=== PATIENT | female | born 1995 | race Caucasian/White ===

== ENCOUNTER 2018-02-14 21:53 | Emergency (ER) | payer OTHER ==
[2018-02-14] MEDS ORDERED: SODIUM CHLORIDE 0.9% 1,000 ML IV ONE (22:47)
[2018-02-14] MEDS ORDERED: ACETAMINOPHEN TAB 325 MG TAB PO STA (22:47)
[2018-02-14 22:55] LABS: Basophils % (A) 0 %; Eosinophils # (A) 0.1 k/uL (0-0.7); Eosinophils % (A) 0 %; HGB 14.1 gm/dL (11.4-16.0); Lymphocytes # (A) 1.8 k/uL (1.0-4.8); Lymphocytes % (A) 13 %; MCH 29.7 pg (25.0-35.0); MCHC 34.3 g/dL (31.0-37.0); MCV 86.7 fL (80.0-100.0); Monocytes # (A) 1.2 k/uL (0-1.0); Monocytes % (A) 9 %; Neutrophils # (A) 10.9 k/uL (1.3-7.7); Neutrophils % (A) 77 %; Platelet Count 332 k/uL (150-450); RBC 4.74 m/uL (3.80-5.40); RDW 11.5 % (11.5-15.5); WBC 14.3 k/uL (4.0-11.0)
[2018-02-14 23:09] LABS: ALT 27 U/L (9-52); AST 23 U/L (14-36); Albumin 4.6 g/dL (3.5-5.0); Alkaline Phosphatase 80 U/L (38-126); Anion Gap 16 mmol/L; Blood Urea Nitrogen 9 mg/dL (7-17); Calcium 9.9 mg/dL (8.4-10.2); Carbon Dioxide 30 mmol/L (22-30); Chloride 96 mmol/L (98-107); Glucose 89 mg/dL (74-99); Potassium 5.3 mmol/L (3.5-5.1); Sodium 142 mmol/L (137-145); Total Bilirubin 0.8 mg/dL (0.2-1.3); Total Protein 8.4 g/dL (6.3-8.2)
[2018-02-14 23:12] LABS: Appearance,Urine Clear (Clear); Bacteria,Urine Rare /hpf; Bilirubin,Urine Negative (Negative); Blood,Urine Negative (Negative); Color,Urine Yellow; Glucose,Urine (UA) Negative (Negative); Ketones,Urine Negative (Negative); Leukocyte Esterase,Urine Moderate (Negative); Mucus,Urine Rare /hpf; Nitrite,Urine Negative (Negative); PH, Urine 7.5 (5.0-8.0); Protein,Urine Negative (Negative); RBC,Urine 1 /hpf (0-5); Specific Gravity,Urine 1.006 (1.001-1.035); Squamous Epithelial Cell,Urine 2 /hpf (0-4); Urobilinogen,Urine <2.0 mg/dL (<2.0); WBC,Urine 26 /hpf (0-5)
[2018-02-14] MEDS ORDERED: RX INFO: IV CONTRAST WAS GIVEN 1 EACH MISC MISCELLANE PRN (23:30)
[2018-02-14 23:40] VITALS: RESP 18
--- NOTE | 2018-02-14 23:46 | ED ---
General Adult HPI - General Chief complaint: Abdominal Pain Stated complaint: Constipation Source: patient Mode of arrival: ambulatory Limitations: no limitations - History of Present Illness Initial comments: Tami is a previously healthy 22-year-old female who presents to the emergency department today for evaluation of right-sided abdominal pain and constipation. Patient reports that her last bowel movement was on Saturday. She reports that since that time she's been experiencing right-sided abdominal pain and pressure. She has tried to treat her constipation with [id number] medications including laxatives, stool softeners, enema and suppositories. Despite this aggressive treatment she has not had a bowel movement in 5 days. Though she was noted to be febrile on arrival the patient denies any subjective fevers, chills, nausea, vomiting. She does report mildly decreased appetite. She denies any change in bladder habits. She reports her last menses was 2 weeks ago and denies any possibility of . - Related Data Home Medications Medication Instructions Recorded Confirmed Bisacodyl [Dulcolax] 10 mg RECTAL ONCE PRN 02/14/18 02/14/18 Magnesium Citrate [Citrate of 296 ml PO ONCE PRN 02/14/18 02/14/18 Magnesia] Na Phos,M-B/Na Phos,Di-Ba [Fleet 133 ml RECTAL ONCE PRN 02/14/18 02/14/18 Adult] Previous Rx's Medication Instructions Recorded Levofloxacin [Levaquin] 750 mg PO DAILY 5 Days #5 tab 02/15/18 Allergies Allergy/AdvReac Type Severity Reaction Status Date / Time No Known Allergies Allergy Verified 02/14/18 22:16 Review of Systems ROS Statement: Those systems with pertinent positive or pertinent negative responses have been documented in the HPI. ROS Other: All systems not noted in ROS Statement are negative. Constitutional: Denies: fever, chills ENT: Denies: throat pain Respiratory: Denies: cough Cardiovascular: Denies: chest pain Endocrine: Denies: fatigue Gastrointestinal: Reports: abdominal pain, constipation. Denies: nausea, vomiting Genitourinary: Denies: dysuria, frequency, abnormal menses Musculoskeletal: Reports: back pain Skin: Denies: rash, lesions Neurological: Denies: headache, weakness Psychiatric: Denies: anxiety Past Medical History Past Medical History: No Reported History History of Any Multi-Drug Resistant Organisms: None Reported Past Surgical History: No Surgical Hx Reported Past Psychological History: No Psychological Hx Reported Smoking Status: Never smoker Past Alcohol Use History: None Reported Past Drug Use History: None Reported General Exam Limitations: no limitations General appearance: alert, in no apparent distress Head exam: Present: atraumatic, normocephalic Eye exam: Present: normal appearance, PERRL ENT exam: Present: normal exam Neck exam: Present: lymphadenopathy Respiratory exam: Absent: respiratory distress Cardiovascular Exam: Present: regular rate, normal rhythm GI/Abdominal exam: Present: soft, normal bowel sounds. Absent: distended, guarding, rebound, rigid Rectal exam: Present: deferred Extremities exam: Present: normal inspection Back exam: Present: normal inspection Neurological exam: Present: alert, oriented X3 Psychiatric exam: Present: normal affect, normal mood Skin exam: Present: warm, dry Course Vital Signs 02/14/18 02/14/18 02/14/18 22:02 23:19 23:40 Temperature 101 F H 99 F Pulse Rate 98 92 84 Respiratory 18 20 18 Rate Blood Pressure 133/86 128/70 128/71 O2 Sat by Pulse 100 97 100 Oximetry Medical Decision Making - Medical Decision Making Patient was seen and evaluated, vital signs were reviewed, patient was noted to be febrile with mild tachycardia with a heart rate of 98 Patient with right lower quadrant abdominal pain and constipation, physical exam reveals mild suprapubic, right lower quadrant and right flank tenderness At this time I have a very low suspicion for appendicitis, we will pursue labs, if patient has leukocytosis we will discuss further imaging Labs with leukocytosis Urinalysis with evidence of UTI Results were discussed with the patient, I advised that appendicitis can mimic a UTI therefore we will pursue CT scanning. Patient is agreeable. Discussed with patient possibility of sexual transmitted infection, patient denies that there is any possibility that she could have a sexually transmitted infection. I offered the patient a pelvic exam for further evaluation, patient declined to the exam. She denies any vaginal discharge, malodor, discomfort or pain with intercourse. Rocephin ordered for UTI Computed tomography scan reveals evidence suggestive of pyelonephritis. Results were discussed with the patient. I advised the patient that she will be discharged home on oral antibiotics and should follow-up with a primary care provider in one week for repeat urinalysis to ensure that the urinary tract infection is cleared. Discussed with the patient that her constipation is likely secondary to adynamic ileus due to the inflammation in her retroperitoneal space. All questions pertaining to care were answered to the best of my ability and the patient was discharged home with a prescription for Levaquin. - Lab Data Result diagrams: 02/14/18 22:20 02/14/18 22:20 Lab Results 02/14/18 02/14/18 02/14/18 Range/Units 22:20 22:20 23:04 WBC 14.3 H (4.0-11.0) k/uL RBC 4.74 (3.80-5.40) m/uL Hgb 14.1 (11.4-16.0) gm/dL Hct 41.0 (34.0-46.0) % MCV 86.7 (80.0-100.0) fL MCH 29.7 (25.0-35.0) pg MCHC 34.3 (31.0-37.0) g/dL RDW 11.5 (11.5-15.5) % Plt Count 332 (150-450) k/uL Neutrophils % 77 % Lymphocytes % 13 % Monocytes % 9 % Eosinophils % 0 % Basophils % 0 % Neutrophils # 10.9 H (1.3-7.7) k/uL Lymphocytes # 1.8 (1.0-4.8) k/uL Monocytes # 1.2 H (0-1.0) k/uL Eosinophils # 0.1 (0-0.7) k/uL Basophils # 0.0 (0-0.2) k/uL Sodium 142 (137-145) mmol/L Potassium 5.3 H (3.5-5.1) mmol/L Chloride 96 L (98-107) mmol/L Carbon Dioxide 30 (22-30) mmol/L Anion Gap 16 mmol/L BUN 9 (7-17) mg/dL Creatinine 0.60 (0.52-1.04) mg/dL Est GFR (CKD-EPI)AfAm >90 (>60 ml/min/1.73 sqM) Est GFR (CKD-EPI)NonAf >90 (>60 ml/min/1.73 sqM) Glucose 89 (74-99) mg/dL Calcium 9.9 (8.4-10.2) mg/dL Total Bilirubin 0.8 (0.2-1.3) mg/dL AST 23 (14-36) U/L ALT 27 (9-52) U/L Alkaline Phosphatase 80 (38-126) U/L Total Protein 8.4 H (6.3-8.2) g/dL Albumin 4.6 (3.5-5.0) g/dL Urine Color Urine Appearance (Clear) Urine pH (5.0-8.0) Ur Specific [place] (1.001-1.035) Urine Protein (Negative) Urine Glucose (UA) (Negative) Urine Ketones (Negative) Urine Blood (Negative) Urine Nitrite (Negative) Urine Bilirubin (Negative) Urine Urobilinogen (<2.0) mg/dL Ur Leukocyte Esterase (Negative) Urine RBC (0-5) /hpf Urine WBC (0-5) /hpf Ur Squamous Epith Cells (0-4) /hpf Urine Bacteria (None) /hpf Urine Mucus (None) /hpf Urine HCG, Qual Not Detected (Not Detectd) 02/14/18 Range/Units 23:04 WBC (4.0-11.0) k/uL RBC (3.80-5.40) m/uL Hgb (11.4-16.0) gm/dL Hct (34.0-46.0) % MCV (80.0-100.0) fL MCH (25.0-35.0) pg MCHC (31.0-37.0) g/dL RDW (11.5-15.5) % Plt Count (150-450) k/uL Neutrophils % % Lymphocytes % % Monocytes % % Eosinophils % % Basophils % % Neutrophils # (1.3-7.7) k/uL Lymphocytes # (1.0-4.8) k/uL Monocytes # (0-1.0) k/uL Eosinophils # (0-0.7) k/uL Basophils # (0-0.2) k/uL Sodium (137-145) mmol/L Potassium (3.5-5.1) mmol/L Chloride (98-107) mmol/L Carbon Dioxide (22-30) mmol/L Anion Gap mmol/L BUN (7-17) mg/dL Creatinine (0.52-1.04) mg/dL Est GFR (CKD-EPI)AfAm (>60 ml/min/1.73 sqM) Est GFR (CKD-EPI)NonAf (>60 ml/min/1.73 sqM) Glucose (74-99) mg/dL Calcium (8.4-10.2) mg/dL Total Bilirubin (0.2-1.3) mg/dL AST (14-36) U/L ALT (9-52) U/L Alkaline Phosphatase (38-126) U/L Total Protein (6.3-8.2) g/dL Albumin (3.5-5.0) g/dL Urine Color Yellow Urine Appearance Clear (Clear) Urine pH 7.5 (5.0-8.0) Ur Specific [place] 1.006 (1.001-1.035) Urine Protein Negative (Negative) Urine Glucose (UA) Negative (Negative) Urine Ketones Negative (Negative) Urine Blood Negative (Negative) Urine Nitrite Negative (Negative) Urine Bilirubin Negative (Negative) Urine Urobilinogen <2.0 (<2.0) mg/dL Ur Leukocyte Esterase Moderate H (Negative) Urine RBC 1 (0-5) /hpf Urine WBC 26 H (0-5) /hpf Ur Squamous Epith Cells 2 (0-4) /hpf Urine Bacteria Rare H (None) /hpf Urine Mucus Rare H (None) /hpf Urine HCG, Qual (Not Detectd) Disposition Clinical Impression: Pyelonephritis Disposition: HOME SELF-CARE Condition: Good Instructions: Urinary Tract Infection in Women (ED), Flank Pain (ED) Prescriptions: Levofloxacin [Levaquin] 750 mg PO DAILY 5 Days #5 tab Is patient prescribed a controlled substance at d/c from ED?: No Referrals: None,Stated [Primary Care Provider] - 1-2 days Time of Disposition: 00:52
--- NOTE | 2018-02-15 00:17 | CT ---
EXAMINATION TYPE: CT abdomen pelvis w con DATE OF EXAM: 02/15/2018 COMPARISON: NONE HISTORY: Constipation, Right flank pain CT DLP: 381.40 mGycm Automated exposure control for dose reduction was used. TECHNIQUE: Helical acquisition of images was performed from the lung bases through the pelvis. CONTRAST: Performed without Oral Contrast and with IV Contrast, patient injected with 100 mL of Isovue 300. FINDINGS: The lung bases are clear. There is no pleural effusion. There is no pericardial effusion. Liver spleen pancreas gallbladder appear normal. Bile ducts are not dilated. Gallbladder is contracte d. There is no adrenal mass. Kidneys show satisfactory contrast opacification on the initial images. The delayed images show some peripelvic edema as well as upper and lower pole edema in the right kidn ey involving the papilla. Ureters do not appear dilated. Bladder distends smoothly. There is no evide nce of a pelvic mass. Uterus is anteverted. There is no free fluid in the pelvis. Appendix is not see n. There is no sign of appendicitis. IMPRESSION: THERE IS RENAL PAPILLARY EDEMA AND PERIPELVIC EDEMA ON THE RIGHT SIDE THAT IS SUGGESTIVE OF ACUTE TRACY LONEPHRITIS. NO RENAL OBSTRUCTION SEEN. NO EVIDENCE OF APPENDICITIS. NO EVIDENCE OF AN ABSCESS.
[2018-02-15] MEDS ORDERED: cefTRIAXone IN SWFI 1,000 MG/10 ML SYRINGE IVP STA (00:28)
[2018-02-15] MEDS ORDERED: LACTULOSE 20 GM/30 ML CUP PO ONE (00:28)
[2018-02-15 01:11] VITALS: BP 129/79; PULSE 88; TEMP 97
== END 2018-02-15 01:12 | disposition home or self-care (01) ==
LOC: EC 21:53
DX: N12 Tubulo-interstitial nephritis, not specified as acute or chronic (principal); K59.00 Constipation, unspecified
CPT/HCPCS: 36415; 80053; 85025; 81001; 81025; 74177; 99284; 96374; 96361; J0696; Q9967